=== PATIENT | female | born 1985 | race Caucasian/White ===

== ENCOUNTER → 2016-10-11 | Outpatient (CLI) | payer OTHER ==
--- NOTE | 2016-10-11 17:57 | DI ---
History: ultrasound requested. Study performed using a 4 MHz transducer. Prior study: None. Findings: There is a single living intrauterine in vertex presentation. heart rate is 134 beats per minute. Biparietal diameter, head circumference, abdominal circumference and femur jodi gth are in fairly close agreement varying between 27 weeks 6 days/femur length of 229 weeks one day/h ead circumference. There is no ultrasonographic evidence of IUGR. heart rate is 134 beats per m inute. Current estimated weight is 1160 g, 61st percentile. The anatomy shows normal calvaria without overlapping bone, no evidence of ventriculomegaly or intracranial abnormality observed. position does not allow clear evaluation of nuchal thickenin g. The cardiac images are unremarkable. No evidence of ascites. Amniotic fluid volume appears adequate. Placenta is anteriorly oriented well away from the cervical o s. Three-vessel cord insertion noted, normal. Extremities unremarkable to extent depicted. No dorsal abnormalities identified. Impression: Single living intrauterine in cephalic/vertex presentation. No evidence of plac enta previa or abruption. The estimated gestational age based upon overall age is 28 weeks 3 da ys versus 27 weeks 3 days by dates
== END ==
LOC: US 10:54
PROVIDERS: ATTEND Family Medicine
DX: Z36 Encounter for antenatal screening of mother (principal); Z3A.27 27 weeks gestation of pregnancy
CPT/HCPCS: 76805

== ENCOUNTER → 2016-10-11 | Outpatient (CLI) | payer OTHER ==
[2016-10-11 16:11] LABS: BASOPHILS # (AUTO) 0.03 10*3/UL; BASOPHILS % (AUTO) 0.3 % (0-1); EOSINOPHILS % (AUTO) 1.5 % (0-8); HEMATOCRIT 36.2 % (37.0-47.0); HEMOGLOBIN 12.3 g/dL (12.0-16.0); IMM GRAN % (AUTO) 1.3 % (0-5); IMM GRAN# (AUTO) 0.14 10*3/UL; LYMPHOCYTES % (AUTO) 13.6 % (10-50); MEAN CORPUSCULAR HEMOGLOBIN 29.5 PG (27-31); MEAN PLATELET VOLUME 8.6 FL (7.4-12.2); MONOCYTES # (AUTO) 1.32 10*3/UL (0.3-0.8); NEUTROPHILS # (AUTO) 7.85 10*3/UL; NEUTROPHILS % (AUTO) 71.3 % (50-80); RDW COEFFICIENT OF VARIATION 12.8 % (11.5-14.5); RED BLOOD COUNT 4.17 10^6/uL (4.20-5.40); WHITE BLOOD COUNT 11.01 10^3/uL (4.8-10.8)
[2016-10-11 16:12] LABS: PLATELET MORPHOLOGY COMMENT NORMAL MORPHOLOGY (NORM); PRENATAL QUESTION YES (Y)
[2016-10-11 16:22] LABS: HIV ANTIBODY NEGATIVE (N); HIV-1 P24 ANTIGEN NEGATIVE (N)
[2016-10-13 10:35] LABS: HEP B SURFACE AG Negative (Negative)
[2016-10-13 13:36] LABS: RUBELLA IGG INDEX 1.4 (()); SYPHILIS IGG WITH REFLEX Negative (Negative)
== END ==
LOC: MOB LAB 14:07
PROVIDERS: ATTEND Family Medicine
DX: Z36 Encounter for antenatal screening of mother (principal); Z3A.22 22 weeks gestation of pregnancy
CPT/HCPCS: 36415; 80081; 86900; 86901; 87088

== ENCOUNTER → 2016-11-08 | Outpatient (CLI) | payer OTHER | LOC: LAB 08:11 | PROVIDERS: ATTEND Family Medicine | DX: Z36 Encounter for antenatal screening of mother (principal); Z3A.31 31 weeks gestation of pregnancy | CPT/HCPCS: 36415; 82950; 84443 ==

== ENCOUNTER → 2016-12-08 | Outpatient (CLI) | payer OTHER | LOC: MOB LAB 12:35 | PROVIDERS: ATTEND Family Medicine | DX: Z36 Encounter for antenatal screening of mother (principal); Z3A.35 35 weeks gestation of pregnancy | CPT/HCPCS: 87150 ==

== ENCOUNTER 2017-01-05 03:23 | Inpatient (IN) | payer OTHER ==
[2017-01-05] MEDS ORDERED: LIDOCAINE W/ SODIUM BICARB 0.5 ML SYR ONE (09:33)
[2017-01-05] MEDS: NORMAL SALINE 10 ML SYRINGE FLUSH IVP PRN ×2 (10:20→12:55)
[2017-01-05] MEDS ORDERED: METHYLERGONOVINE MALEATE 0.2 MG/1 ML VIAL IM PRN ×3 (11:10→22:11)
[2017-01-05] MEDS ORDERED: NALOXONE 0.4 MG/1 ML VIAL IVP PRN ×2 (11:10→22:11)
[2017-01-05] MEDS ORDERED: CITRIC ACID/SODIUM CITRATE 30 ML CUP PO PRN ×2 (11:10→22:11)
[2017-01-05] MEDS ORDERED: LIDOCAINE W/ SODIUM BICARB 0.5 ML SYR SUBD PRN ×2 (11:10→22:11)
[2017-01-05] MEDS ORDERED: NORMAL SALINE 10 ML SYRINGE FLUSH IVP PRN ×3 (11:10→22:11)
[2017-01-05] MEDS ORDERED: ePHEDrine Inj 5 MG in Normal Saline Flush 1 ML IVP PRN ×2 (11:10→22:11)
[2017-01-05] MEDS ORDERED: OXYTOCIN 10 UNIT/1 ML IM PRN ×2 (11:10→22:11)
[2017-01-05] MEDS ORDERED: Carboprost Inj 250 MCG/ML AMP IM PRN ×3 (11:10→22:11)
[2017-01-05] MEDS ORDERED: Phenylephrine Inj 50 MCG in Normal Saline Flush 0.5 ML IVP PRN ×2 (11:10→22:11)
[2017-01-05] MEDS ORDERED: Metoclopramide Inj 10 MG/2 ML VIAL IV PRN ×2 (11:10→22:11)
[2017-01-05] MEDS ORDERED: MISOPROSTOL 200 MCG TABLET RECTAL PRN ×2 (11:10→22:11)
[2017-01-05] MEDS ORDERED: Lidocaine 1% 10 MG/ML - 20 ML VIAL SUBCUT PRN ×2 (11:10→22:11)
[2017-01-05] MEDS ORDERED: TERBUTALINE SULFATE 1 MG/1 ML SDV SUBCUT PRN ×2 (11:10→22:11)
[2017-01-05] MEDS ORDERED: ONDANSETRON 4 MG/2 ML VIAL IVP PRN ×3 (11:10→22:11)
[2017-01-05] MEDS ORDERED: CefOXitin Inj 2 GM in Sodium Chloride 0.9% 100 ML IV PRN ×2 (11:10→22:11)
[2017-01-05] MEDS ORDERED: fentaNYL Inj 100 MCG/2 ML VIAL IV PRN ×2 (11:10→22:11)
[2017-01-05] MEDS ORDERED: Famotidine Inj 20 MG in Normal Saline Flush 10 ML IVP PRN ×8 (11:10→22:11)
[2017-01-05] MEDS ORDERED: Naloxone Inj 0.01 MG in Normal Saline Flush 1 ML IVP PRN ×2 (11:10→22:11)
[2017-01-05] MEDS ORDERED: diphenhydrAMINE 50 MG/1 ML VIAL IVP PRN ×3 (11:10→22:11)
[2017-01-05] MEDS ORDERED: BUTORPHANOL TARTRATE 2 MG/1 ML VIAL IVP PRN ×2 (11:10→22:11)
[2017-01-05] MEDS ORDERED: CALCIUM CARBONATE 500 MG (TUMS) CHEWABLE TABLET PO PRN ×3 (11:10→22:11)
[2017-01-05] MEDS ORDERED: Nalbuphine Inj 20 MG/ML Ampule IVP PRN ×3 (11:10→22:11)
[2017-01-05] MEDS ORDERED: Oxytocin 20 Units + LR 1,000 ML IV SCH ×2 (11:15→22:11)
[2017-01-05 11:19] LABS: HEMATOCRIT 38.2 % (37.0-47.0); HEMOGLOBIN 13.1 g/dL (12.0-16.0); MEAN CORPUSCULAR HEMOGLOBIN 28.4 PG (27-31); MEAN CORPUSCULAR HGB CONC 34.3 g/dL (33-37); MEAN CORPUSCULAR VOLUME 82.9 FL (81-99); MEAN PLATELET VOLUME 9.4 FL (7.4-12.2); RED BLOOD COUNT 4.61 10^6/uL (4.20-5.40)
--- NOTE | 2017-01-05 15:18 | OB.PROGRES ---
Date and Time of Service: 01/05/17 @ 0845 Interval History: Pt is a 31 yo G1 at 39 5/7 weeks by second trimester u/s who presented to labor and delivery last noc with painful uterine contractions. She was seen in the office yesterday and was checked and had some spotting after having her cervix checked. She denied gushes of fluid, RAMIREZ, RUQ pain or increased lower extremity edema. Baby had been moving normally. Objective - Cervical Exam Cervical Exam: /-1, membranes intact. Small amount of blood on the glove after the exam. [place]: irregularly, approximately every 2-6 minutes. Heart Rate: category 1 strip, no decels noted. Heart Rate Interpretation Category: Category I - Labs CBC and BMP: 01/05/17 10:24 Labs - Last 24 Hours: Laboratory Results 01/05/17 Range/Units 10:24 WBC 12.49 H (4.8-10.8) 10^3/uL RBC 4.61 (4.20-5.40) 10^6/uL Hgb 13.1 (12.0-16.0) g/dL Hct 38.2 (37.0-47.0) % MCV 82.9 (81-99) FL MCH 28.4 (27-31) PG MCHC 34.3 (33-37) g/dL RDW Std Deviation 40.6 (39-50) fL RDW Coeff of Tracie 13.9 (11.5-14.5) % Plt Count 281 (140-350) 10*3/uL MPV 9.4 (7.4-12.2) FL - Vital Signs Last Taken Vital Signs: Vital Signs - Last Taken Temperature 97.9 F 01/05/17 12:51 Pulse Rate 101 H 01/05/17 12:51 Respiratory Rate 18 01/05/17 12:51 Blood Pressure 127/77 01/05/17 12:51 Pulse Ox 99 01/05/17 12:51 Assessment and Plan - Patient Problems (1) Current Visit: Yes Status: Acute Qualifiers: Weeks of gestation: 39 weeks Qualified Description: 39 weeks gestation of Qualifier Code(s): (Z3A.39) 39 weeks gestation of - Assessment / Plan Additional Assessment/Plan Details: -admit for labor. -pt wishing for as natural of labor as she can. plan reviewed. -GBS negative. -discussed walking to help encouraged labor and pt willing to do this. -expectant management.
--- NOTE | 2017-01-05 15:58 | OB.PROGRES ---
Date and Time of Service: 01/05/17 6254 Interval History: States that she feels that her contractions are "stronger" but no necessarily closer together. Still a little bit of spotting when she wipes in the bathroom, but no heavy vaginal bleeding. Denies leakage of fluid or abnormal vaginal discharge. No other complaints. Objective - Cervical Exam Cervical Exam: /-1 [place]: u/c still irregular, about 2 of them in 15 minutes. Palpating moderate. Heart Rate: reactive, category 1 strip. No decels noted. Heart Rate Interpretation Category: Category I - Labs CBC and BMP: 01/05/17 10:24 Labs - Last 24 Hours: Laboratory Results 01/05/17 Range/Units 10:24 WBC 12.49 H (4.8-10.8) 10^3/uL RBC 4.61 (4.20-5.40) 10^6/uL Hgb 13.1 (12.0-16.0) g/dL Hct 38.2 (37.0-47.0) % MCV 82.9 (81-99) FL MCH 28.4 (27-31) PG MCHC 34.3 (33-37) g/dL RDW Std Deviation 40.6 (39-50) fL RDW Coeff of Tracie 13.9 (11.5-14.5) % Plt Count 281 (140-350) 10*3/uL MPV 9.4 (7.4-12.2) FL - Vital Signs Last Taken Vital Signs: Vital Signs - Last Taken Temperature 97.9 F 01/05/17 12:51 Pulse Rate 101 H 01/05/17 12:51 Respiratory Rate 18 01/05/17 12:51 Blood Pressure 127/77 01/05/17 12:51 Pulse Ox 99 01/05/17 12:51 Assessment and Plan - Patient Problems (1) Current Visit: Yes Status: Acute Qualifiers: Weeks of gestation: 39 weeks Qualified Description: 39 weeks gestation of Qualifier Code(s): (Z3A.39) 39 weeks gestation of - Assessment / Plan Additional Assessment/Plan Details: -pt continuing with slow cervical change. Continue to monitor. -GBS negative. -encouraged her to ambulate as much as she can to help encourage labor. -expectant management.
[2017-01-05] MEDS: Lactated Ringers-OB Dept 1,000 ML PRIMARY IV SCH (18:22)
--- NOTE | 2017-01-05 22:05 | OB.DEL.SUM ---
Delivery Note Delivery Summary: Pt is a 31 yo G1 now P1 at 39 5/7 weeks by second trimester u/s who presented today in labor. She progressed slowly from 3-4 cm on admission to 7-8 cm at 1745. She agreed to artificial rupture of membranes at that point, which was done with clear fluid. She progressed on her own to c/c/+1 at 1930. She pushed for about an hour to the delivery of a viable male , over a right mediolateral episiotomy. The baby left hand was up by his face at delivery. The nose and mouth were suctioned with the bulb suction. The cord was not clamped for a minute, per the parent's wishes. It was doubly clamped by myself and cut by the father of the baby. The cord was noted to have 1 true knot. Baby was placed on mom's chest. The placenta delivered spontaneously and intact with a 3 vessel cord at 2033. Fundal massage was complete with no atony noted. Pitocin was not given secondary to pt request. The vagina and perineum were examined and a second degree epis with small extension was noted and repaired in the normal fashion with 3-0 vicryl rapide suture. Rectal exam was normal, with no disruption of the mucosa. Apgars were 9 at 1 minute and 9 at 5 minutes. Baby weighed 7#11.8oz and was 20.5 inches long. Head was 14 1/2 inches in diameter. EBL 200 cc. Both mom and baby tolerated delivery well and are in stable condition at this time. - Patient Problems (1) Current Visit: Yes Status: Acute Qualifiers: Weeks of gestation: 39 weeks Qualified Description: 39 weeks gestation of Qualifier Code(s): (Z3A.39) 39 weeks gestation of
[2017-01-05] MEDS ORDERED: MISOPROSTOL 200 MCG TABLET RECTAL ONE (22:11)
[2017-01-05] MEDS ORDERED: diphenhydrAMINE 25 MG CAPSULE PO PRN (22:11)
[2017-01-05] MEDS ORDERED: ACETAMINOPHEN 325 MG TABLET PO PRN (22:11)
[2017-01-05] MEDS ORDERED: GLYCERIN/WITCH HAZEL 1 BOX TOPICAL PRN (22:11)
[2017-01-05] MEDS ORDERED: BENZOCAINE/MENTHOL SPRAY 56 GM BOTTLE TOPICAL PRN (22:11)
[2017-01-05] MEDS ORDERED: LANOLIN HPA 40 GM TUBE TOPICAL PRN (22:11)
[2017-01-05] MEDS ORDERED: Methylergonovine Tab 0.2 MG TAB PO PRN (22:11)
[2017-01-05] MEDS ORDERED: OXYTOCIN 10 UNIT/1 ML IM ONE (22:11)
[2017-01-05] MEDS ORDERED: Ondansetron ODT Tab 4 MG TAB PO PRN (22:11)
[2017-01-05] MEDS ORDERED: DIPH,PERTUSS,TET(ADACEL) VAC/PF 0.5 ML (Tdap) IM SCH (22:11)
[2017-01-05] MEDS: HYDROcodone-APAP 5 MG -325 MG TABLET PO PRN (22:40)
[2017-01-06] MEDS: HYDROcodone-APAP 5 MG -325 MG TABLET PO PRN ×4 (02:43→19:11)
[2017-01-06 07:48] LABS: HEMATOCRIT 36.1 % (37.0-47.0); HEMOGLOBIN 12.3 g/dL (12.0-16.0); MEAN CORPUSCULAR HEMOGLOBIN 28.6 PG (27-31); MEAN CORPUSCULAR HGB CONC 34.1 g/dL (33-37); MEAN PLATELET VOLUME 9.3 FL (7.4-12.2); RED BLOOD COUNT 4.3 10^6/uL (4.20-5.40)
[2017-01-06] MEDS: DOCUSATE 100 MG CAPSULE PO SCH ×2 (09:23→21:00)
[2017-01-06] MEDS: Prenatal Multivitamin Tab 1 TAB TAB PO SCH (09:24)
[2017-01-06] MEDS: Lactated Ringers-OB Dept 1,000 ML PRIMARY IV SCH ×3 (18:51→23:29)
[2017-01-07] MEDS: HYDROcodone-APAP 5 MG -325 MG TABLET PO PRN ×2 (03:33→10:13)
[2017-01-07] MEDS: Prenatal Multivitamin Tab 1 TAB TAB PO SCH (10:12)
[2017-01-07] MEDS: DOCUSATE 100 MG CAPSULE PO SCH (10:13)
[2017-01-07 11:37] VITALS: RESP 18; TEMP 98.8
== END 2017-01-07 15:12 | disposition home or self-care (01) | DRG 775 ==
LOC: OBOP 03:23 → OBIP 09:08
PROVIDERS: ADMIT Family Medicine; ATTEND Family Medicine
PROC: 10E0XZZ Delivery of Products of Conception, External Approach (ICD-10-PCS; principal; 2017-01-05)
PROC: 0W8NXZZ Division of Female Perineum, External Approach (ICD-10-PCS; 2017-01-05)
DX: O80 Encounter for full-term uncomplicated delivery (principal); Z3A.39 39 weeks gestation of pregnancy; Z37.0 Single live birth
CPT/HCPCS: 36415; 81003; 85027; J2001; J7120